=== PATIENT | female | born 1955 | race Caucasian/White ===

== ENCOUNTER 2024-01-29 07:28 | Day surgery (SDC) | payer MEDICARE ==
[2024-01-29] MEDS ORDERED: Depo-Medrol 40 MG/ML IM ONE (07:29)
[2024-01-29] MEDS ORDERED: Sodium Chloride 0.9(Preservative Free) 10 ML IJ ONE (07:29)
[2024-01-29] MEDS ORDERED: LIDOCAINE HCL 1% 50 MG/5 ML VL PF IJ ONE (07:29)
[2024-01-29] MEDS ORDERED: Lactated Ringers 1,000 ML IV ONE (09:30)
[2024-01-29] MEDS ORDERED: DIPRIVAN 200 MG/20 ML IV ONE (09:42)
[2024-01-29] MEDS ORDERED: Hydromorphone 1 mg/ml Injection ONE (10:00)
--- NOTE | 2024-01-29 11:52 | XRAY ---
Indication: Lumbar CHAPITO. Intraoperative fluoroscopy provided for 19 seconds. 3 digital spot images submitted for interpretation demonstrates posterior needle tip projecting just posterior to lumbosacral junction interspace. Small amount of contrast injected for needle tip placement. Correlate with intraoperative findings/report.
--- NOTE | 2024-01-29 12:06 | XRAY ---
19 seconds of fluoroscopy was used in surgery for a lumbar CHAPITO.
== END 2024-01-29 10:33 ==
LOC: SDC-PAIN 07:28
PROVIDERS: ATTEND Psychiatry & Neurology Pain Medicine
DX: M54.16 Radiculopathy, lumbar region (principal); E11.9 Type 2 diabetes mellitus without complications
CPT/HCPCS: 62323; 72100; 77003; 82947; J1170; J2001; J2704; Q9966

== ENCOUNTER 2024-07-01 09:26 | Day surgery (SDC) | payer MEDICARE ==
[2024-07-01] MEDS ORDERED: dexAMETHasone sodium phosphate IJ ONE (09:27)
[2024-07-01] MEDS ORDERED: Sodium Chloride 0.9(Preservative Free) 10 ML IJ ONE (09:27)
[2024-07-01] MEDS ORDERED: propofoL IV ONE (10:46)
[2024-07-01] MEDS ORDERED: NORCO 7.5/325 MG TAB PO ONE (11:30)
--- NOTE | 2024-07-01 11:58 | XRAY ---
Indication: Left L4-S1 transforaminal CHAPITO. Intraoperative fluoroscopy provided for 43 seconds. 6 digital spot image submitted for interpretation demonstrates posterior needle tips projecting over the expected left L4 and L5 nerve roots. Small amount of contrast injected for needle tip placement. Correlate with intraoperative findings/report.
--- NOTE | 2024-07-01 12:32 | XRAY ---
43 seconds of fluoroscopy was used in surgery for a left L4-S1 transforaminal CHAPITO.
== END 2024-07-01 12:06 | disposition home or self-care (01) ==
LOC: SDC-PAIN 09:26
PROVIDERS: ATTEND Psychiatry & Neurology Pain Medicine
DX: M54.16 Radiculopathy, lumbar region (principal); E11.9 Type 2 diabetes mellitus without complications
CPT/HCPCS: 64483; 64484; 72100; 77003; 82947; J1100; J2704; Q9966; A9270-GY

== ENCOUNTER 2025-03-10 09:39 | Day surgery (SDC) | payer MEDICARE ==
[2025-03-10] MEDS ORDERED: BUPIVACAINE 0.5% VIAL IJ ONE (09:40)
[2025-03-10] MEDS ORDERED: propofoL IV ONE (11:25)
--- NOTE | 2025-03-10 13:03 | XRAY ---
Indication: Right C2-C4 MBB. Intraoperative fluoroscopy provided for 15 seconds. 2 digital spot image submitted for interpretation demonstrates posterior needle tips projecting over expected right C2-C4 nerve roots. Correlate with intraoperative findings/report.
--- NOTE | 2025-03-10 13:07 | XRAY ---
15 seconds of fluoroscopy were used in surgery for a right C2-C4 MBB.
[2025-03-10] MEDS ORDERED: Lactated Ringers 1,000 ML IV ONE (15:16)
== END 2025-03-10 11:58 | disposition home or self-care (01) ==
LOC: SDC-PAIN 09:39
PROVIDERS: ATTEND Psychiatry & Neurology Pain Medicine
DX: M47.812 Spondylosis without myelopathy or radiculopathy, cervical region (principal); E11.9 Type 2 diabetes mellitus without complications